=== PATIENT | female | born 1980 | race Caucasian/White ===

== ENCOUNTER 2016-08-12 06:59 | Inpatient (IN) | payer OTHER ==
[~2016-08-12 06:59] MED LIST: LIDOCAINE 1% 5 ML SDV ID PRN; LR 1,000 ML IV ONE
[2016-08-12] MEDS ORDERED: FAMOTIDINE 20 MG TAB ONE (08:02)
[2016-08-12] MEDS ORDERED: FAMOTIDINE 20 MG/2 ML SDV ONE ×2 (08:03)
[2016-08-12] MEDS ORDERED: MIDAZOLAM 2 MG/2 ML VIAL ONE (08:04)
[2016-08-12] MEDS ORDERED: fentaNYL 250 MCG/5 ML INJ ONE (08:09)
[2016-08-12] MEDS ORDERED: PROPOFOL/EMULSION 500 MG/50 ML BOTTLE IV ONE (08:10)
[2016-08-12] MEDS ORDERED: BUPIVACAINE/EPI 0.5% 30 ML SDV ONE (08:18)
[2016-08-12] MEDS ORDERED: SKIN ADHESIVE (DERMABOND) 1 EACH TP ONE (08:18)
[2016-08-12] MEDS ORDERED: PROPOFOL 200 MG/20 ML VIAL ONE (08:19)
[2016-08-12] MEDS ORDERED: HYDROmorphONE/DILAUDID 2 MG/ML SYR ONE ×2 (08:22→13:02)
[2016-08-12] MEDS ORDERED: CLINDAMYCIN 900 MG/DEXTROSE 50 ML IV ONE (08:30)
[2016-08-12] MEDS ORDERED: ROCURONIUM 100 MG/10 ML VIAL ONE (09:49)
[2016-08-12] MEDS ORDERED: PHENYLEPHRINE HCL 100 MCG/ML SYR ONE (09:50)
[2016-08-12] MEDS ORDERED: DEXAMETHASONE 4 MG/ML VIAL ONE ×2 (09:50)
[2016-08-12] MEDS ORDERED: POLYETHYLENE GLYCOL 3350 17 GM PKT PO PRN (12:18)
[2016-08-12] MEDS ORDERED: LACTULOSE 20 GM/30 ML UDCUP PO PRN (12:18)
[2016-08-12] MEDS ORDERED: BISACODYL 10 MG SUPP PR PRN (12:18)
[2016-08-12] MEDS ORDERED: MAGNESIUM HYDROXIDE 30 ML UDCUP PO PRN (12:18)
[2016-08-12] MEDS ORDERED: fentaNYL 100 MCG/2 ML INJ ONE (13:02)
[2016-08-12] MEDS ORDERED: MEPERIDINE 25 MG/ML SYR ONE (13:02)
--- NOTE | 2016-08-12 13:52 | GOP ---
[f rep st] OPERATIVE REPORT DATE OF OPERATION: 08/12/2016 SURGEON: Kofi Roberto MD WEATHER FORECASTER: OBINNA Rose. ANESTHESIA: General. PREOPERATIVE DIAGNOSIS: 1. Pelvic pain. 2. Dysmenorrhea. 3. Dyschezia. 4. Endometriosis. 5. 3 cm rectal lesion. 6. Subserosal fibroid. POSTOPERATIVE DIAGNOSIS: 1. Pelvic pain. 2. Dysmenorrhea. 3. Dyschezia. 4. Endometriosis. 5. 3 cm rectal lesion. 6. Subserosal fibroid. PROCEDURE PERFORMED: 1. Robotic-assisted laparoscopic excision of endometriosis in the anterior and posterior cul-de-sacs, bilateral ovarian fossas, and posterior cervix. 2. Robotic excision of 3 cm full thickness rectal lesion. 3. Bilateral ureterolysis. 4. Myomectomy. 5. Bilateral ovarian pexy. FINDINGS: 1. Endometriosis in anterior and posterior cul-de-sacs, bilateral ovarian fossas adherent to both ureters and uterosacral ligaments. 2. No evidence of upper abdominal or diaphragmatic endometriosis. 3. 3 cm full thickness rectal nodule. 4. Subserosal anterior fibroid. SPECIMENS: 1. Multiple segments of peritoneum with endometriosis. 2. Rectal lesion. 3. Uterine fibroid. DESCRIPTION OF PROCEDURE: Ana was taken to the operating room, where she was identified. General anesthesia was administered and found to be adequate. She was placed in the lithotomy position and prepared and draped in normal sterile fashion. A Hulka tenaculum was placed in the uterus for manipulation. A Sheehan catheter was then placed. A bimanual and rectal exam was performed once again to identify the rectal lesion, which was just proximal to the level of the cervix. A 1 cm intraumbilical incision was made with a scalpel. The Veress needle with the CO2 gas flowing was advanced into the peritoneal cavity. The abdomen was then insufflated with carbon dioxide gas. The 12 mm trocar followed by the laparoscope was then inserted. The upper abdomen was unremarkable. There were small blebs of fat on the left hemidiaphragm surface, but no obvious evidence of endometriosis on either diaphragm. Two lateral ports were placed in the right and 1 on the left, under direct visualization. During placement of a left lower quadrant port, the tip of the trocar appeared to compress the retroperitoneum. A retroperitoneal hematoma was identified. This was observed for 10 minutes at the beginning of the case and the boundaries did not extend. It was periodically observed throughout the case as well as at the conclusion of the procedure. Since it remained stable, the procedure was continued. The patient was then placed in Trendelenburg position and the da Yara robot docked on the left side. The instruments were then brought into the abdominal cavity under direct visualization. The pelvis was examined. There was endometriosis in both the anterior and posterior cul-de-sac, as well as both ovarian fossas overlying both ureters. There was endometriosis over the proximal rectum at the same location as the nodule, which was palpated on rectal exam. I 1st addressed the anterior cul-de-sac. The peritoneum with endometriosis at the bladder reflection was completely excised. There were superficial lesions on both ovaries which were fulgurated. A subserosal fibroid was excised after the base was coagulated with the PK forceps. The surface was hemostatic. Once this was accomplished, a bilateral ovarian pexy was performed by suturing each ovary to their ipsilateral round ligaments, near the internal inguinal ring, to treat her cyclic adnexal pain. This was accomplished with 4-0 chromic suture. Attention was then turned to the ovarian fossae. Because of the extensive endometriosis overlying both ureters, a bilateral ureterolysis was required. The peritoneum at the pelvic brim on the right was incised. The ureter was gently dissected free at the brim. The dissection was carried caudally beyond where the ureter crossed underneath the right uterine artery. The ureter was lateralized away from the overlying peritoneum and endometriosis. Once this was accomplished, the entire perineum of the ovarian fossa and the distal half of the uterosacral ligament was completely excised. The exact same procedure was performed on the patient's left side, again requiring a complete ureterolysis. Finally the endometriosis overlying the cervix and the posterior cul-de-sac, was then completely excised. I then addressed the rectal lesion. The boundaries were identified. The serosal surface was circumscribed and careful and meticulous dissection was performed, to remove the entire rectal lesion. During its removal, there were 3 areas which required entry into the rectal lumen. Once the entire lesion was removed, Dr. Janel Florez of General Surgery then took over at the surgeon console, to close each rectal opening in 2 layers. Please see a copy of her dictation for a description of the procedure. She then performed a rectal air insufflation test. No evidence of air leak was identified. The robot was then undocked. The larger specimens were then removed through the umbilical port. The fascia was then closed with 0-Vicryl, and all skin incisions were closed with 4-0 Monocryl and surgical adhesive. Anesthesia was reversed, and the patient taken to PACU awake, in stable condition. I did leave a round drain in the posterior cul-de-sac overlying the rectal repair, which came out through the left-sided robotic port incision site. COMPLICATIONS: Retroperitoneal hematoma. DISPOSITION: Patient stable to PACU. /[id number]/MODL MTDD
[2016-08-12] MEDS: D5W 1/2 NS W/ 20 KCl/L 1,000 ML IV SCH (15:11)
[2016-08-12] MEDS: CLINDAMYCIN 600 MG/DEXTROSE 50 ML IV SCH ×2 (15:14→21:19)
[2016-08-12 18:47] LABS: HEMATOCRIT 36.7 % (38.0-47.0); HEMOGLOBIN 12.3 g/dL (12.6-16.3)
[2016-08-12] MEDS: SENNOSIDES/DOCUSATE SODIUM TAB PO SCH (21:20)
[2016-08-12] MEDS ORDERED: NALOXONE HCL 0.4 MG/ML INJ IVP PRN (21:29)
--- NOTE | 2016-08-12 21:51 | SOAPPROG ---
SOAP Progress Note Assessment/Plan: Assessment: 36 yo s/p davinici removal of fibroid and endometriosis. Retroperitoneal hematoma. Rectal mucosa repaired in 2 layers In pain Will order ADA ACCOMMODATION CONSULTANT Keep Sheehan for tonight Plan: 08/12/16 21:49 Objective: Vital Signs Temp Pulse Resp BP Pulse Ox 38.0 C 85 14 99/85 H 95 08/12/16 21:33 08/12/16 21:33 08/12/16 21:33 08/12/16 21:33 08/12/16 21:33 Laboratory Results 08/12/16 18:32 08/11/16 08/12/16 08/13/16 05:59 05:59 05:59 Intake Total 3300 Output Total 555 Balance 2745 ICD10 Worksheet Patient Problems: Problems Problem Status Diagnosed Endometriosis Acute - ICD10 Problem Qualifiers (1) Endometriosis
[2016-08-12] MEDS: morphINE PCA 30 MG/30 ML PCA IV PRN (22:38)
[2016-08-13] MEDS: LORazepam 2 MG/ML INJ IVP PRN ×2 (00:54→02:31)
--- NOTE | 2016-08-13 04:56 | GOP ---
[f rep st] OPERATIVE REPORT DATE OF OPERATION: 08/12/2016 SURGEON: Janel Florez MD MOLD CLOSER: Cassie Daniels PA-C. ANESTHESIA: General. PREOPERATIVE DIAGNOSIS: Endometriosis with rectal lesion. POSTOPERATIVE DIAGNOSIS: Endometriosis with rectal lesion. PROCEDURE PERFORMED: Primary closure of rectum. FINDINGS: Endometriosis on rectum SPECIMENS: Rectal lesions. INDICATIONS: Ana Grayson is a 36-year-old woman who had endometriosis. She went into the operating room in May 2016 and on EUA examination a submucosal rectal lesion was noted. Biopsies were taken. There were mucinous aspects. She underwent EUS. She had labs obtained and imaging. She presents for operative resection. DESCRIPTION OF PROCEDURE: Ana was already in the operating room, prepped and draped and Dr. Roberto had removed a fibroid as well as the endometriosis. I was present in the operating room when he was excising endometriosis from the rectum. There were 3 small mucosal defects and the lesion was completely removed. I then moved to the robotic console and I sutured the mucosa closed in each of these areas with 3-0 Vicryl. I then closed the peritoneum and the serosa of the rectum with 3-0 Vicryl to make this a 2-layer closure. Irrigation was placed in the pelvis and air was placed in the rectum. There were no leaks noted. A dilator was placed up her anus and the anastomosis was widely patent. The abdomen was explored. The endometriosis was removed. I then left the operative suite. /[id number]/MODL MTDD
[2016-08-13] MEDS: CLINDAMYCIN 600 MG/DEXTROSE 50 ML IV SCH ×2 (05:23→14:30)
[2016-08-13] MEDS: D5W 1/2 NS W/ 20 KCl/L 1,000 ML IV SCH ×2 (05:23→18:43)
[2016-08-13 05:36] LABS: % IMMATURE GRANULYOCYTES 0.5 % (0.0-1.1); ABSOLUTE IMMATURE GRANULOCYTES 0.07 10^3/uL (0.00-0.10); ADD DIFF? NO; ADD MORPH? NO; ADD SCAN? NO; ATYPICAL LYMPHOCYTE FLAG 0 (0-99); FRAGMENT RBC FLAG 0 (0-99); HEMATOCRIT 36.2 % (38.0-47.0); HEMOGLOBIN 12.3 g/dL (12.6-16.3); LEFT SHIFT FLG 40 (0-99); LIPEMIA HEMOLYSIS FLAG 90 (0-99); MEAN CELL HEMOGLOBIN 30.4 pg (27.9-34.1); MEAN CELL VOLUME 89.4 fL (81.5-99.8); MEAN PLATELET VOLUME 9.6 fL (8.7-11.7); PLATELET CLUMPS FLAG 0 (0-99); PLATELET COUNT 245 10^3/uL (150-400); RED BLOOD CELL COUNT 4.05 10^6/uL (4.18-5.33); RED CELL DISTRIBUTION WIDTH 11.9 % (11.5-15.2)
[2016-08-13 06:10] LABS: ANION GAP 7 mEq/L (8-16); CALCIUM 8.4 mg/dL (8.5-10.4); CARBON DIOXIDE 25 mEq/l (22-31); CHLORIDE 105 mEq/L (97-110); CREATININE 0.7 mg/dL (0.6-1.0); GLOMERULAR FILTRATION RATE > 60; GLUCOSE 120 mg/dL (70-100); POTASSIUM 4.2 mEq/L (3.5-5.2); SODIUM 137 mEq/L (134-144)
[2016-08-13] MEDS: SENNOSIDES/DOCUSATE SODIUM TAB PO SCH (08:58)
--- NOTE | 2016-08-13 10:07 | SOAPPROG ---
SOAP Progress Note Assessment/Plan: Assessment: 36 yo F POD#1 s/p davinci removal of fibroid and endometriosis by Dr. Roberto. Iatrogenic retroperitoneal hematoma. Rectal mucosa repaired in [address] Florez Pain control with dilaudid SECURITY CONTROL ROOM OFFICER and PRN ativan Sheehan NPO sips and chips ok Continue FAY encouraged ambulation and deep breathing, IS S: pain much better than last night. still very sore and pain with moving. no nausea or vomiting. O: sitting upright in chair, uncomfortable but NAD No increased WOB Abd distended but soft. tender lower abdomen. hypoactive BS. Incisions CDI. FAY serosanguinous Sheehan clear yellow urine Objective: Vital Signs Temp Pulse Resp BP Pulse Ox 37.7 C 98 16 105/58 L 94 08/13/16 08:00 08/13/16 09:55 08/13/16 09:55 08/13/16 09:55 08/13/16 09:55 Laboratory Results 08/13/16 04:14 08/13/16 04:14 08/12/16 08/13/16 08/14/16 05:59 05:59 05:59 Intake Total 3300 754 Output Total 988 0375 Balance 3025 -461 ICD10 Worksheet Patient Problems: Problems Problem Status Diagnosed Endometriosis Acute
[2016-08-13] MEDS: KETOROLAC 15 MG/1 ML SDV IVP SCH ×2 (12:10→17:56)
--- NOTE | 2016-08-13 14:41 | SOAPPROG ---
SOAP Progress Note Assessment/Plan: Assessment: Doing well overall. Elevated WBC with slight increase neutrophils. But afebrile and FAY output serosanguineous. No evidence of bowel leak or intraabdominal infection. Plan: 08/13/16 14:37 Repeat WBC tomorrow. Increase activity as able. D/C faith when able to ambulate to the bathroom. Likely remove FAY tomorrow. Advance diet when better bowel activity. Subjective: Increased pain overnight requiring CATERPILLAR DRIVER. Much better pain control today. Using toradol and less frequent CATERPILLAR DRIVER. Some ambulation in room. No flatus. No nausea. Objective: Vital Signs Temp Pulse Resp BP Pulse Ox 37.3 C 77 18 106/65 95 08/13/16 12:00 08/13/16 12:00 08/13/16 12:00 08/13/16 12:00 08/13/16 12:00 Laboratory Results 08/13/16 04:14 08/13/16 04:14 08/12/16 08/13/16 08/14/16 05:59 05:59 05:59 Intake Total 3300 754 Output Total 585 1705 Balance 2715 -951 - Pending Discharge Pending Discharge Within 24 Hours: No Physical Exam - Physical Exam General Appearance: WD/WN, alert, no apparent distress Respiratory: lungs clear Cardiac/Chest: regular rate, rhythm Abdomen: soft Skin: normal color, warm/dry (Abdomen flat and soft. Incisions clean, dry, and intact. Drain with serosanguinous drainage, no purulence seen.) ICD10 Worksheet Patient Problems: Problems Problem Status Diagnosed Endometriosis Acute Endometriosis of pelvic peritoneum Acute Endometriosis of rectum Acute Pelvic pain in female Acute Subserosal leiomyoma of uterus Acute - ICD10 Problem Qualifiers (1) Endometriosis of rectum (2) Endometriosis of pelvic peritoneum (3) Subserosal leiomyoma of uterus (4) Pelvic pain in female
[2016-08-13] MEDS: morphINE PCA 30 MG/30 ML PCA IV PRN (14:49)
[2016-08-13] MEDS: HYDROCODONE/APAP 5/325 TAB PO PRN (19:40)
[2016-08-14] MEDS: CLINDAMYCIN 600 MG/DEXTROSE 50 ML IV SCH ×2 (00:04→06:42)
[2016-08-14] MEDS: KETOROLAC 15 MG/1 ML SDV IVP SCH ×5 (00:05→23:03)
[2016-08-14] MEDS: SENNOSIDES/DOCUSATE SODIUM TAB PO SCH ×3 (00:06→20:53)
[2016-08-14] MEDS: ACETAMINOPHEN 325 MG TAB PO PRN (05:11)
[2016-08-14 05:50] LABS: % IMMATURE GRANULYOCYTES 0.2 % (0.0-1.1); ABSOLUTE IMMATURE GRANULOCYTES 0.02 10^3/uL (0.00-0.10); ADD DIFF? NO; ADD MORPH? NO; ADD SCAN? NO; ATYPICAL LYMPHOCYTE FLAG 0 (0-99); FRAGMENT RBC FLAG 0 (0-99); HEMATOCRIT 35.6 % (38.0-47.0); HEMOGLOBIN 11.9 g/dL (12.6-16.3); LEFT SHIFT FLG 40 (0-99); LIPEMIA HEMOLYSIS FLAG 80 (0-99); MEAN CELL HEMOGLOBIN 30.2 pg (27.9-34.1); MEAN CELL HEMOGLOBIN CONCENTR. 33.4 g/dL (32.4-36.7); MEAN CELL VOLUME 90.4 fL (81.5-99.8); MEAN PLATELET VOLUME 9.7 fL (8.7-11.7); PLATELET CLUMPS FLAG 10 (0-99); PLATELET COUNT 193 10^3/uL (150-400); RED BLOOD CELL COUNT 3.94 10^6/uL (4.18-5.33); RED CELL DISTRIBUTION WIDTH 12.2 % (11.5-15.2)
[2016-08-14 06:07] LABS: ANION GAP 8 mEq/L (8-16); CALCIUM 8.4 mg/dL (8.5-10.4); CARBON DIOXIDE 24 mEq/l (22-31); CHLORIDE 104 mEq/L (97-110); CREATININE 0.7 mg/dL (0.6-1.0); GLOMERULAR FILTRATION RATE > 60; GLUCOSE 104 mg/dL (70-100); MAGNESIUM 1.8 mg/dL (1.6-2.3); POTASSIUM 4.3 mEq/L (3.5-5.2); SODIUM 136 mEq/L (134-144)
--- NOTE | 2016-08-14 09:07 | SOAPPROG ---
SOAP Progress Note Assessment/Plan: Assessment: Doing well overall. Elevated WBC with slight increase neutrophils. But afebrile and FAY output serosanguineous. No evidence of bowel leak or intraabdominal infection. Clinically looks better this morning. Temp last night to 103 F. WBC down to 11 from 13. Neutrophils essentially unchanged. Pathology shows only endometriosis of rectum. Patient informed. Plan: 08/13/16 14:37 Repeat WBC tomorrow. Increase activity as able. D/C faith when able to ambulate to the bathroom. Likely remove FAY tomorrow. Advance diet when better bowel activity. 08/14/16 09:04 Antibiotic change this am by Dr. Florez. Advance diet to clears. Repeat CBC tomorrow. Culture drain and urine if another fever. Discussed with Dr. Florez. Subjective: Feels significantly better this morning. Less pain. Passing flatus. No nausea. Objective: Vital Signs Temp Pulse Resp BP Pulse Ox 37.3 C 109 H 16 96/55 L 92 08/14/16 07:44 08/14/16 06:00 08/14/16 07:44 08/14/16 07:44 08/14/16 07:44 Laboratory Results 08/14/16 04:20 08/14/16 04:20 08/13/16 08/14/16 08/15/16 05:59 05:59 05:59 Intake Total 3300 1711 Output Total 585 3732 Balance 2714 -2020 - Pending Discharge Pending Discharge Within 24 Hours: No Physical Exam - Physical Exam General Appearance: WD/WN, alert, no apparent distress Respiratory: lungs clear Cardiac/Chest: regular rate, rhythm Abdomen: normal bowel sounds, non-tender, soft (Abdomen remains flat and soft. Incisions dry. FAY serosanguinous without odor.) Skin: normal color, warm/dry ICD10 Worksheet Patient Problems: Problems Problem Status Diagnosed Endometriosis Acute Endometriosis of pelvic peritoneum Acute Endometriosis of rectum Acute Pelvic pain in female Acute Subserosal leiomyoma of uterus Acute - ICD10 Problem Qualifiers (1) Endometriosis of rectum (2) Endometriosis of pelvic peritoneum (3) Subserosal leiomyoma of uterus (4) Pelvic pain in female
[2016-08-14] MEDS: D5W 1/2 NS W/ 20 KCl/L 1,000 ML IV SCH (11:19)
--- NOTE | 2016-08-14 12:05 | SOAPPROG ---
SOAP Progress Note Assessment/Plan: Assessment: 36 yo s/p davinici removal of fibroid and endometriosis. Retroperitoneal hematoma. Rectal mucosa repaired in 2 layers Febrile overnight Pain much better controlled Passing flatus Neuro - Continue GRADE SCHOOL TEACHER and toradol Resp - IS Cards - No hemodynamic instability. Will monitor GI - Flauts. Bowel protocol : Remove Sheehan today FEN: Clears Heme/ID - Monitor WBC. Changed abx to levo/flagyl to broaden coverage. Spillage of stool at time of OR and febrile. Proph - Start Lovenox Dispo - Continue hospital S: Better today. Walked in room. Was febrile overnight O: Lying in bed, more comfortable BS hypoactive. Less distended. Soft. FAY with serosanguinous fluid Lungs: Decreased at bases Cards: Regular rate Plan: 08/12/16 21:49 08/14/16 12:02 Objective: Vital Signs Temp Pulse Resp BP Pulse Ox 37.6 C 102 H 16 94/59 L 96 08/14/16 11:55 08/14/16 11:55 08/14/16 11:55 08/14/16 11:55 08/14/16 11:55 Laboratory Results 08/14/16 04:20 08/14/16 04:20 08/13/16 08/14/16 08/15/16 05:59 05:59 05:59 Intake Total 3300 1711 Output Total 499 2182 25 Balance 2714 ICD10 Worksheet Patient Problems: Problems Problem Status Diagnosed Endometriosis Acute Endometriosis of pelvic peritoneum Acute Endometriosis of rectum Acute Pelvic pain in female Acute Subserosal leiomyoma of uterus Acute - ICD10 Problem Qualifiers (1) Endometriosis
[2016-08-14] MEDS: HYDROCODONE/APAP 5/325 TAB PO PRN (14:12)
[2016-08-14] MEDS: LORazepam 2 MG/ML INJ IVP PRN (23:03)
[2016-08-15] MEDS: D5W 1/2 NS W/ 20 KCl/L 1,000 ML IV SCH (04:27)
[2016-08-15] MEDS: ACETAMINOPHEN 325 MG TAB PO PRN (04:28)
[2016-08-15 05:21] LABS: % IMMATURE GRANULYOCYTES 0.4 % (0.0-1.1); ABSOLUTE IMMATURE GRANULOCYTES 0.03 10^3/uL (0.00-0.10); ADD DIFF? NO; ADD MORPH? NO; ADD SCAN? NO; ATYPICAL LYMPHOCYTE FLAG 0 (0-99); FRAGMENT RBC FLAG 0 (0-99); HEMATOCRIT 31.3 % (38.0-47.0); HEMOGLOBIN 10.6 g/dL (12.6-16.3); LEFT SHIFT FLG 40 (0-99); LIPEMIA HEMOLYSIS FLAG 90 (0-99); MEAN CELL HEMOGLOBIN CONCENTR. 33.9 g/dL (32.4-36.7); MEAN CELL VOLUME 88.7 fL (81.5-99.8); MEAN PLATELET VOLUME 9.5 fL (8.7-11.7); PLATELET CLUMPS FLAG 0 (0-99); PLATELET COUNT 172 10^3/uL (150-400); RED BLOOD CELL COUNT 3.53 10^6/uL (4.18-5.33); RED CELL DISTRIBUTION WIDTH 11.9 % (11.5-15.2)
[2016-08-15] MEDS: KETOROLAC 15 MG/1 ML SDV IVP SCH ×4 (05:59→23:22)
[2016-08-15] MEDS: SENNOSIDES/DOCUSATE SODIUM TAB PO SCH (07:58)
[2016-08-15] MEDS ORDERED: traMADol 50 MG TAB PO PRN (08:44)
--- NOTE | 2016-08-15 09:15 | SOAPPROG ---
SOAP Progress Note Assessment/Plan: Assessment: 36 yo s/p davinici removal of fibroid and endometriosis by Dr. Roberto. Retroperitoneal hematoma. Rectal mucosa repaired in [address] Florez Neuro - will transition to PO ultram or dilaudid. continue toradol Resp - IS Cards - No hemodynamic instability. Will monitor GI - flatus. Bowel protocol : voiding spontaneously FEN: advance to regular diet Heme/ID - continue levo/flagyl to broaden coverage. Spillage of stool at time of OR and febrile. Proph - Lovenox Dispo - Continue hospital, possibly home in am if tolerates diet and pain controlled S: improving. passing flatus. O: Lying in bed, comfortable Normoactive bowel sounds. Soft, minimally distended. FAY with serosanguinous fluid no increased wob Objective: Vital Signs Temp Pulse Resp BP Pulse Ox 37.1 C 80 17 94/55 L 95 08/15/16 08:05 08/15/16 08:05 08/15/16 08:05 08/15/16 08:05 08/15/16 08:05 Laboratory Results 08/15/16 04:13 08/14/16 04:20 08/14/16 08/15/16 08/16/16 05:59 05:59 05:59 Intake Total 1711 1701 Output Total 9464 7976 -2020 ICD10 Worksheet Patient Problems: Problems Problem Status Diagnosed Endometriosis Acute Endometriosis of pelvic peritoneum Acute Endometriosis of rectum Acute Pelvic pain in female Acute Subserosal leiomyoma of uterus Acute
[2016-08-15] MEDS: HYDROmorphONE/DILAUDID 2 MG TAB PO PRN ×2 (11:59→16:25)
[2016-08-15] MEDS: LORazepam 2 MG/ML INJ IVP PRN (23:22)
[2016-08-16] MEDS: SENNOSIDES/DOCUSATE SODIUM TAB PO SCH ×2 (00:36→09:18)
[2016-08-16] MEDS: KETOROLAC 15 MG/1 ML SDV IVP SCH ×2 (05:13→12:12)
[2016-08-16 05:40] LABS: % IMMATURE GRANULYOCYTES 0.4 % (0.0-1.1); ABSOLUTE IMMATURE GRANULOCYTES 0.02 10^3/uL (0.00-0.10); ADD DIFF? NO; ADD MORPH? NO; ADD SCAN? NO; ATYPICAL LYMPHOCYTE FLAG 60 (0-99); FRAGMENT RBC FLAG 0 (0-99); HEMATOCRIT 29.2 % (38.0-47.0); HEMOGLOBIN 10.2 g/dL (12.6-16.3); LEFT SHIFT FLG 20 (0-99); LIPEMIA HEMOLYSIS FLAG 90 (0-99); MEAN CELL HEMOGLOBIN 30.7 pg (27.9-34.1); MEAN CELL HEMOGLOBIN CONCENTR. 34.9 g/dL (32.4-36.7); MEAN PLATELET VOLUME 9.4 fL (8.7-11.7); PLATELET CLUMPS FLAG 0 (0-99); PLATELET COUNT 194 10^3/uL (150-400); RED BLOOD CELL COUNT 3.32 10^6/uL (4.18-5.33); RED CELL DISTRIBUTION WIDTH 11.9 % (11.5-15.2)
[2016-08-16] MEDS: HYDROmorphONE/DILAUDID 2 MG TAB PO PRN ×2 (07:37→16:47)
[2016-08-16 15:07] VITALS: BP 108/64; PULSE 91; RESP 18; TEMP 98.6; O2SAT 94
--- NOTE | 2016-08-16 16:27 | SOAPPROG ---
SOAP Progress Note Assessment/Plan: Assessment: 36 FEMALE WITH COLECTOMY, PARTIAL FOR ENDOMETRIOSIS WOUNDS OK/ AFEBRILE/ EATING/ + BMS ABD SOFT, NONTENDER PATH BENIGN DRAINAGE DECREASING Plan: HOME ON ABX 08/16/16 16:24 Objective: Vital Signs Temp Pulse Resp BP Pulse Ox 37.0 C 91 18 108/64 94 08/16/16 15:05 08/16/16 15:05 08/16/16 15:05 08/16/16 15:05 08/16/16 15:05 Laboratory Results 08/16/16 05:14 08/14/16 04:20 08/15/16 08/16/16 08/17/16 05:59 05:59 05:59 Intake Total 1701 1000 400 Output Total 2310 6126 1034 [facility] [phone] ICD10 Worksheet Patient Problems: Problems Problem Status Diagnosed Endometriosis Acute Endometriosis of pelvic peritoneum Acute Endometriosis of rectum Acute Pelvic pain in female Acute Subserosal leiomyoma of uterus Acute
--- NOTE | 2016-08-21 09:51 | GDS ---
[f rep st] DISCHARGE SUMMARY DISCHARGE DIAGNOSES: 1. Severe endometriosis. 2. Pelvic pain. 3. Dyschezia. 4. Dysmenorrhea. HISTORY: The patient is a 36-year-old, 0 female with a long history of pelvic pain with presumed endometriosis. She was taken to the operating room in June 2016 for robotic excision of endometriosis. After induction of anesthesia, an examination under anesthesia was performed. On rectal exam, I noted a rectal nodule approximately 9 cm from the anus. Dr. Janel Florez was consulted intraoperatively. She performed a biopsy of the lesion. A decision was made to cancel the laparoscopy until the lesion could be more completely evaluated and a more complete surgical plan developed to prevent a 2nd operative procedure. The patient then underwent a CT scan and colonoscopy. Some cells concerning for neoplasia, but no definite diagnosis was obtained. She then was taken back to the operating room on August 12, 2016 where she underwent robotic excision of endometriosis. She was found to have a large lesion of endometriosis extending into the rectum as well as multiple other lesions. All lesions were excised. During the procedure, 3 holes were made in the rectum to remove the entire rectal nodule of endometriosis. Dr. Janel Florez then performed a double layered closure. Postoperatively, the patient had a relatively uneventful course. Her pain was initially managed with a CASE ASSISTANT and later switched to orals. She did have several spiking temperatures up to approximately 38.8. However, her white count on postoperative day #1 was minimally elevated in the 11s and then quickly returned to normal. Her abdomen remained benign. She had a FAY drain which only drained serosanguineous fluid. She was discharged home on August 16 in good condition. She was to remain on antibiotics as well as [place] and ibuprofen for pain. She is to follow up with me in the office 1 week after discharge and Dr. Florez the following week. Her pathology returned showing only endometriosis. There was no evidence of neoplasia or carcinoma of the rectum. Copy requested to: Primary Care Provider /[id number]/MODL MTDD
== END 2016-08-16 17:12 | disposition home or self-care (01) | DRG 743 ==
LOC: F3N 06:59 → OBSVTOIN 06:59 → F3E 14:37
PROVIDERS: ADMIT Obstetrics & Gynecology; ATTEND Obstetrics & Gynecology
PROC: 0UBF4ZX Excision of Cul-de-sac, Percutaneous Endoscopic Approach, Diagnostic (ICD-10-PCS; principal; 2016-08-12 08:15)
PROC: 0UB94ZX Excision of Uterus, Percutaneous Endoscopic Approach, Diagnostic (ICD-10-PCS; principal; 2016-08-12 08:15)
PROC: 0TN64ZZ Release Right Ureter, Percutaneous Endoscopic Approach (ICD-10-PCS; principal; 2016-08-12 08:15)
PROC: 0UB Female Reproductive System, Excision (ICD-10-PCS; principal; 2016-08-12 08:15)
PROC: 0DBP4ZX Excision of Rectum, Percutaneous Endoscopic Approach, Diagnostic (ICD-10-PCS; principal; 2016-08-12 08:15)
PROC: 0TN74ZZ Release Left Ureter, Percutaneous Endoscopic Approach (ICD-10-PCS; principal; 2016-08-12 08:15)
PROC: 0UB24ZX Excision of Bilateral Ovaries, Percutaneous Endoscopic Approach, Diagnostic (ICD-10-PCS; principal; 2016-08-12 08:15)
PROC: 8E0W4CZ Robotic Assisted Procedure of Trunk Region, Percutaneous Endoscopic Approach (ICD-10-PCS; 2016-08-12 08:15)
PROC: 0DQP4ZZ Repair Rectum, Percutaneous Endoscopic Approach (ICD-10-PCS; 2016-08-12 08:15)
DX: N80.1 Endometriosis of ovary (principal); N80.3 Endometriosis of pelvic peritoneum; N80.8 Other endometriosis; N80.5 Endometriosis of intestine; D25.2 Subserosal leiomyoma of uterus
CPT/HCPCS: J1100; J1170; J1885; J1956; J2250; J2270; J2370; J2704; J3010

== ENCOUNTER 2017-05-31 05:52 | Emergency (ER) | payer OTHER ==
[2017-05-31 06:01] VITALS: RESP 16
[2017-05-31] MEDS ORDERED: ONDANSETRON 4 MG/2 ML VIAL ONE (06:07)
[2017-05-31] MEDS ORDERED: HYDROmorphONE/DILAUDID 1 MG/ML INJ ONE (06:20)
[2017-05-31] MEDS ORDERED: HYDROmorphONE/DILAUDID 1 MG/ML INJ IVP ONE (06:22)
[2017-05-31] MEDS ORDERED: NS 1,000 ML IV ONE ×2 (06:22→07:42)
[2017-05-31] MEDS ORDERED: ONDANSETRON 4 MG/2 ML VIAL IVP ONE ×2 (06:22→07:42)
[2017-05-31 06:30] LABS: PLATELET COUNT 231 10^3/uL (150-400)
[2017-05-31] MEDS ORDERED: KETOROLAC 30 MG/1 ML SDV IVP ONE (07:42)
--- NOTE | 2017-05-31 07:45 | EDPHY ---
H & P Time Seen by Provider: 05/31/17 07:21 HPI/ROS: CHIEF COMPLAINT: Abdominal pain, diarrhea HISTORY OF PRESENT ILLNESS: 37-year-old female with a history of endometriosis presents with abdominal pain and diarrhea. Onset of diarrhea at 3:00 a.m., multiple episodes since then. Now passing small amounts of bright red blood per rectum. Associated with left lower quadrant pain and nausea. The pain is intermittent, moderate and stabbing. No vomiting or fever. REVIEW OF SYSTEMS: Constitutional: No fever, no chills Eyes: No visual changes ENT: No sore throat Respiratory: No cough, no shortness of breath Cardiac: No chest pain Genitourinary: No hematuria, no dysuria Musculoskeletal: No leg pain or swelling Skin: No rash Neurological: No headache, no weakness Psychiatric: No depression Past Medical/Surgical History: Multiple sclerosis Endometriosis Social History: Smoking Status: Former smoker Physical Exam: General Appearance: Alert, pleasant, pale Eyes: Pupils equal and round, no conjunctival pallor or injection ENT, Mouth: Mucous membranes moist Neck: Normal inspection Respiratory: Lungs are clear to auscultation Cardiovascular: Regular rate and rhythm Gastrointestinal: Abdomen is soft, left-sided tenderness, no peritoneal signs Neurological: A&O, nonfocal, normal gait Skin: Warm and dry, no rash Extremities: Nontender, no pedal edema Psychiatric: Mood and affect normal Constitutional: Initial Vital Signs Heart Rate 79 05/31/17 05:59 Respiratory Rate 16 05/31/17 05:59 Blood Pressure 124/76 H 05/31/17 05:59 O2 Sat (%) 100 05/31/17 05:59 O2 Delivery Mode Room Air O2 (L/minute) 2 Allergies/Adverse Reactions: ampicillin Allergy (Verified 07/29/16 11:49) Hives latex Allergy (Verified 07/29/16 11:49) Itching Penicillins Allergy (Verified 07/29/16 11:49) Hives Home Medications: Medication Instructions Recorded Ondansetron Odt [Zofran Odt 4 mg 4 mg PO Q4 PRN #6 tab 05/31/17 (*)] Medical Decision Making ED Course/Re-evaluation: Patient presents with nausea, crampy abdominal pain and diarrhea, most likely secondary to gastroenteritis. IV normal saline 1 L, Zofran and Dilaudid IV already given. On my examination, she has left-sided abdominal tenderness. I discussed the differential for left-sided abdominal pain, including diverticulitis. CT scan discussed, the patient prefers to wait and see if she feels better after further pain and nausea medicine. A 2nd L of normal saline, Zofran and Toradol IV given. 9:00 a.m.-feels much better, wants to go home. No nausea or pain. Abdominal exam-left lower quadrant tenderness persists, no peritoneal signs. No episodes of rectal bleeding or diarrhea while she was in the emergency department. Abdominal pain precautions given. I will send her home with a stool specimen container and a lab slip for GI pathogen panel. She will stay on clear liquids today and gradually advance her diet as tolerated. Differential Diagnosis: Differential diagnosis includes though it is not limited to appendicitis, cholecystitis, diverticulitis, pyelonephritis, bowel perforation, small bowel obstruction. - Data Points Laboratory Results: Laboratory Results 05/31/17 06:15 05/31/17 06:15 05/31/17 05/31/17 05/31/17 06:15 06:15 06:15 WBC 9.34 10^3/uL 10^3/uL (3.80-9.50) RBC 4.70 10^6/uL 10^6/uL (4.18-5.33) Hgb 14.4 g/dL g/dL (12.6-16.3) Hct 40.6 % % (38.0-47.0) MCV 86.4 fL fL (81.5-99.8) MCH 30.6 pg pg (27.9-34.1) MCHC 35.5 g/dL g/dL (32.4-36.7) RDW 11.9 % % (11.5-15.2) Plt Count 231 10^3/uL 10^3/uL (150-400) MPV 9.6 fL fL (8.7-11.7) Neut % (Auto) 83.4 % H % (39.3-74.2) Lymph % (Auto) 10.6 % L % (15.0-45.0) [place] % (Auto) 5.2 % % (4.5-13.0) Eos % (Auto) 0.2 % L % (0.6-7.6) Baso % (Auto) 0.3 % % (0.3-1.7) Nucleat RBC Rel Count 0.0 % % (0.0-0.2) Absolute Neuts (auto) 7.78 10^3/uL H 10^3/uL (1.70-6.50) Absolute Lymphs (auto) 0.99 10^3/uL L 10^3/uL (1.00-3.00) Absolute Monos (auto) 0.49 10^3/uL 10^3/uL (0.30-0.80) Absolute Eos (auto) 0.02 10^3/uL L 10^3/uL (0.03-0.40) Absolute Basos (auto) 0.03 10^3/uL 10^3/uL (0.02-0.10) Absolute Nucleated RBC 0.00 10^3/uL 10^3/uL (0-0.01) Immature Gran % 0.3 % % (0.0-1.1) Immature Gran # 0.03 10^3/uL 10^3/uL (0.00-0.10) Sodium 137 mEq/L mEq/L (134-144) Potassium 4.3 mEq/L mEq/L (3.5-5.2) Chloride 108 mEq/L mEq/L (97-110) Carbon Dioxide 17 mEq/l L mEq/l (22-31) Anion Gap 12 mEq/L mEq/L (8-16) BUN 14 mg/dL mg/dL (7-23) Creatinine 0.7 mg/dL mg/dL (0.6-1.0) Estimated GFR > 60 Glucose 162 mg/dL H mg/dL (70-100) Calcium 9.5 mg/dL mg/dL (8.5-10.4) Beta HCG, Qual NEGATIVE Medications Given: Discontinued Medications Hydromorphone HCl (Dilaudid) 0.5 mg IVP EDNOW ONE Stop: 05/31/17 06:23 Last Admin: 05/31/17 06:23 Dose: 0.5 mg Sodium Chloride (Ns) 1,000 mls @ 0 mls/hr IV ONCE ONE PRN Reason: Wide Open Stop: 05/31/17 06:23 Last Admin: 05/31/17 06:23 Dose: 1,000 mls Sodium Chloride (Ns) 1,000 mls @ 0 mls/hr IV EDNOW ONE; Wide Open PRN Reason: Protocol Stop: 05/31/17 07:43 Last Admin: 05/31/17 07:48 Dose: 1,000 mls Ketorolac Tromethamine (Toradol) 15 mg IVP EDNOW ONE Stop: 05/31/17 07:43 Last Admin: 05/31/17 07:49 Dose: 15 mg Ondansetron HCl (Zofran) 4 mg IVP EDNOW ONE Stop: 05/31/17 06:23 Last Admin: 05/31/17 06:24 Dose: 4 mg Ondansetron HCl (Zofran) 4 mg IVP EDNOW ONE Stop: 05/31/17 07:43 Last Admin: 05/31/17 07:49 Dose: 4 mg Departure - Departure Disposition: Home, Routine, Self-Care Clinical Impression: Diarrhea Qualifiers: Diarrhea type: infectious Qualified Code(s): A09 - Infectious gastroenteritis and colitis, unspecified Abdominal pain Qualifiers: Abdominal location: left lower quadrant Qualified Code(s): R10.32 - Left lower quadrant pain Condition: Good Instructions: Acute Diarrhea (ED), Acute Abdominal Pain (ED) Additional Instructions: Clear liquids for 24 hours. Take Zofran as needed for nausea. Take Imodium [id number] as directed on the packaging as needed for diarrhea. Referrals: Joe Padilla MD [Medical Doctor] - 1 day, if not improved Prescriptions: Ondansetron Odt [Zofran Odt 4 mg (*)] 4 mg PO Q4 PRN #6 tab PRN Reason: Nausea
[2017-05-31 09:21] VITALS: BP 110/61; PULSE 84; TEMP 98.8; O2SAT 96
== END 2017-05-31 09:21 | disposition home or self-care (01) ==
DX: A09 Infectious gastroenteritis and colitis, unspecified (principal); E86.9 Volume depletion, unspecified; Z87.891 Personal history of nicotine dependence; Z91.040 Latex allergy status
CPT/HCPCS: 96374; J1170; J1885; J2405